=== PATIENT | female | born 2000 | race Caucasian/White ===

== ENCOUNTER 2020-02-27 16:36 | Emergency (ER) | payer SELFPAY ==
[~2020-02-27 16:36] MED LIST: Iopamidol 370 76% 100 ML VIAL ONE
[2020-02-27 17:11] LABS: Bilirubin Negative (Negative); Blood, Urine Negative (Negative); Clarity Clear (Clear); Glucose, Urine (Dipstick) Negative (Negative); Leukocyte Negative (Negative); Nitrite Negative (Negative); Protein, Urine (Dipstick) Negative (Neg-Trace); Urobilinogen 0.2 mg/dL (Less than 2)
[2020-02-27 17:12] LABS: Pregnancy Test - Urine (BHCG) Negative (Negative); Pregu Control Background? CLEAR/WHITE (CLR/WHITE); Pregu Control Bar Appear? YES (CONTROL BAR); Specific Gravity 1.015 (1.002-1.036)
[2020-02-27] MEDS ORDERED: Acetaminophen 500 MG TAB ONE (17:18)
[2020-02-27 17:38] LABS: #Eosinphils 0.1 thou/uL (0.0-0.7); #Lymphocytes 1.4 thou/uL (1.20-3.40); #Monocytes 0.5 thou/uL (0.11-0.59); #Neutrophils 5.8 thou/uL (1.40-6.50); %Basophils 0.6 % (0.0-1.0); %Eosinophils 0.7 % (0.0-10.0); %Lymphocytes 17.6 % (21.0-51.0); %Monocytes 6.4 % (0.0-10.0); %Neutrophils 74.6 % (42.0-75.0); Hemoglobin 13.1 g/dL (12.0-16.0); Mean Corpuscular HGB CONC 32.9 g/dL (32.0-36.0); Mean Corpuscular Hemoglobin 31.6 pg (27.0-31.0); Mean Platelet Volume 9.1 fL (7.4-10.4); Platelet Count 218 thou/uL (130-400); RBC Distribution Width 10.6 % (11.5-14.5); Red Blood Cell (RBC) Count 4.14 mill/uL (4.20-5.40); White Blood Cell (WBC) Count 7.7 thou/uL (4.8-10.8)
[2020-02-27 17:48] LABS: Wet Prep Clue Cells Clue Cells Absent (None Seen); Wet Prep Pathologist Review Spermatozoa Absent (None Seen); Wet Prep Spermatozoa 2nd Revie Agree with result (None Seen); Wet Prep Trichomonas Trichomonas Absent (None Seen)
[2020-02-27 17:52] LABS: ALT (SGPT) 13 U/L (8-55); AST (SGOT) 15 U/L (5-34); Albumin 4.3 g/dL (3.5-5.0); Alkaline Phosphatase 66 U/L (40-110); Anion Gap 12 mmol/L (10-20); BUN (Urea Nitrogen) 9 mg/dL (7.0-18.7); Bilirubin, Total 0.5 mg/dL (0.2-1.2); Calc. Creatinine Clearance 0 mL/min (70-130); Calcium 8.9 mg/dL (7.8-10.44); Carbon Dioxide 21 mmol/L (22-29); Chloride 109 mmol/L (98-107); Estimated GFR-MDRD Greater than 90; Globulin 2.5 g/dL (2.4-3.5); Glucose 87 mg/dL (70-105); Potassium 3.6 mmol/L (3.5-5.1); Protein, Total 6.8 g/dL (6.0-8.3); Sodium 138 mmol/L (136-145)
--- NOTE | 2020-02-27 18:35 | CT ---
CT ABDOMEN AND PELVIS WITH IV CONTRAST: 02/27/20 PROVIDED CLINICAL HISTORY: Right lower quadrant pain. COMPARISON: 05/20/18. The visualized lung bases are free of significant opacity. The liver, spleen, pancreas, kidneys, and adrenal glands demonstrate an unremarkable CT appearance. There is mild free fluid present within the pelvis. The Hounsfield units of this fluid are greater th an that compatible with simple fluid. This could reflect subacute blood products or complex proteinac eous fluid as can be seen in the setting of infection. No fat stranding changes are seen. The uterus demonstrates normal enhancement. The appendix appears normal. There is no evidence for bowel obstruction. No evidence for free intraperitoneal air. The osseous structures demonstrate no concerning lytic or blastic lesions. IMPRESSION: Mild complex fluid in the pelvis, possibly reflecting ruptured hemorrhagic cyst. Infectious changes c annot be excluded in the appropriate clinical context. POS: [facility]
== END 2020-02-27 18:50 | disposition home or self-care (01) ==
LOC: MADERS 16:36
DX: N83.209 Unspecified ovarian cyst, unspecified side (principal); Z71.6 Tobacco abuse counseling; F17.210 Nicotine dependence, cigarettes, uncomplicated
CPT/HCPCS: 74177; 80053; 81003; 81025; 85025; 87210; 87491; 87591; 99406; Q9967

== ENCOUNTER 2020-05-30 17:19 | Emergency (ER) | payer MEDICAID, OTHER, SELFPAY | END 2020-05-30 19:13 | disposition home or self-care (01) | LOC: MADERS 17:19 | DX: O20.0 Threatened abortion (principal); F17.210 Nicotine dependence, cigarettes, uncomplicated; Z3A.01 Less than 8 weeks gestation of pregnancy | CPT/HCPCS: 36415; 84702; 99284 ==

== ENCOUNTER 2020-06-04 10:41 | Emergency (ER) | payer MEDICAID, OTHER | END 2020-06-04 12:05 | disposition home or self-care (01) | LOC: MADERS 10:41 | DX: O20.9 Hemorrhage in early pregnancy, unspecified (principal); O99.331 Smoking (tobacco) complicating pregnancy, first trimester; F17.210 Nicotine dependence, cigarettes, uncomplicated; Z3A.01 Less than 8 weeks gestation of pregnancy | CPT/HCPCS: 36415; 84702; 99284 ==